=== PATIENT | female | born 1975 | race Caucasian/White ===

== ENCOUNTER 2017-03-29 16:35 | Emergency (ER) | payer MEDICAID ==
[~2017-03-29] VITALS: Ht 160 cm; Wt 90.7 kg
[~2017-03-29 16:35] MED LIST: ALBUTEROL-200 PUFFS/ IH; ALBUTEROL2 PUFFS/17 IN; AMOXIL500 MG PO; AUGMENTIN 875-1 EACH PO; AZITHROMYCIN250 M1 PO; BACTRIM DS 8001 TAB PO; BACTROBAN22; BENZONATATE100 MG PO; CIPRO 500MG TA500 MG PO; FLEXERIL10 MG PO; HYDROCODONE-APA1 TA1 PO; IBUPROFEN800 MG PO; KEFLEX 500MG.500 MG PO; LORTAB 5/500 501 TAB PO; MEDROL 4MG. DOSE4 MG PO; MELOXICAM7.5 MG PO; NICOTINE PATCH;21 MG TD; NOMEDS *; NORCO 325 MG-51 TAB PO; OMEPRAZOLE20 MG PO; PHENERGAN 25MG.25 M1 PO; PHENERGAN25 M1 PO; PRILOSEC20 M1 PO; TESSALON PERLE100 M1 PO; TESSALON PERLE200 MG PO; ULTRAM 50 MG TA50 MG PO; VICODIN 5/500 T1 TAB PO; VOLTAREN50 MG PO; VOLTAREN75 MG PO; WELLBUTRIN XL300 MG PO; XANAX 0.5MG TA0.5 MG PO; ZANTAC 150150 MG PO; ZANTAC 150MG T150 MG PO; ZOFRAN4 MG PO
--- NOTE | 2017-03-29 17:03 | Urgent Treatment Center Report ---
See Addendum History of Present Issue Date/Time Seen by Provider 03/29/17 1702 Visit Reason Pt arrived:Walked Presenting Problem:PT STATES COUGH, SHORTNESS OF AIR, CHEST CONGESTION AND CHEST PRESSURE FOR 2 WEEKS Location if Accident: Onset of symptoms date/time:/ or onset unknown for:MEDICAL HX UNKNOWN Have you (or family members/close friends) recently traveled outside the [place]? N If Yes, where/when: Have you had exposure to infectious disease within the past month? TB? Other? Specify: c/o cough, SOA, wheezing, chest congestion. Poor historian. Isn't sure about any of the history. "thinks" most of these times frames are "about right". Mild symptoms for months now. Got worse 2-3 weeks ago. Was seen at clinic. "She thought I had early stages of COPD". Improved "a little but didn't go away" with zpack, steroid shot, rescue inhaler and something for cough. "Starting to get worse again". Was smoking 1.5ppd but down to 1ppd x weeks. Using albuterol 3-4 times a day. Helps but "symptoms come right back". Hasn't followed up with Dr. Merino due to work schedule yet gets off work at 9am and goes in at 9pm. "too tired" to go during the day. Source patient Exam Limitations no limitations ALLERGIES Coded Allergies: adhesive (I-HIVES 05/16/16) erythromycin base (I-HIVES 05/16/16) Home Medications Active Scripts Benzonatate (Tessalon Perle) 100 MG PO TID #15 SGL Prov: 08/03/16 Ibuprofen (Ibuprofen 800MG) 800 MG PO Q8HP PRN pain #15 TAB Prov: 08/03/16 Albuterol (Albuterol-Hfa Inhaler) 1 PUFF IH QID #1 INH Ref 6 Prov: 05/16/16 Reported Medications BUPROPION HCL (Wellbutrin XL 300MG) 150 MG PO DAILY Omeprazole (Omeprazole 20MG) 20 MG PO DAILY #30 History Medical History General CAD? No Angina: No PA: No Hypertension? No Hyperlipidemia? No CHF? No DVT? No PE? No COPD? No Asthma? Yes Anemia? No GERD? Yes Gastric ulcers? No GI Bleed? No Hernia? No Thyroid Problems? No Hypothyroidism? No CVA? No Seizures? No Diabetes? No Insulin Dependent: No Insulin Pump: No Home FSBS? No Renal Insuffiency? No UTI? No Stones? No BPH? No GB Disease: No Nephritic Syndrome? No Asplenia? No Hepatitis? No Sickle Cell Disease? No Arthritis? No Migraines? No Cataracts? No Glaucoma? No MRSA? No HIV? No TB? No Anxiety? Yes Depression? No Cancer? No More? 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 denies: ear pain, ear discharge, throat swelling. Respiratory see HPI Cardiovascular chest pain (throughout with cough), denies palpitations Gastrointestinal denies no symptoms reported Musculoskeletal denies other (aches) Skin denies rash Psychiatric/Neurological denies headache Physical Exam Vital Signs Vital Signs Date Time Temp Pulse Resp B/P Pulse O2 O2 Flow FiO2 Ox Delivery Rate 03/29 1644 97.7 84 20 119/82 99 General Appearance no apparent distress, obese Eye Exam - bilateral eye normal exam Ear, Nose, Throat normal ENT inspection (x/ mild nasal congestion) Neck non-tender, supple Respiratory Status Yes: trachea midline, chest symmetrical, non tender chest, non productive cough (worse with deep breaths). No: respiratory distress, use of accessory muscles, pain on inspiration, pain on expiration, productive cough. Lung Sounds anterior: lungs clear, decreased breath sounds (irina bases). posterior: lungs clear, decreased breath sounds (irina bases). bilateral: lungs clear, decreased breath sounds (irina bases). Cardiovascular regular rate/rhythm, no peripheral edema, no murmur Neurologic alert, oriented x 3 Skin normal color, warm/dry Lymphatic no adenopathy Medical Decision Making LABS/Meds/Orders Pt receiving controlled substance in ED? No Results/Orders Current Medication Orders Sig/Archie Start time Last Medication Dose Route Stop Time Status Admin Albuterol/Ipratropium 0 .STK-MED ONE 03/29 1740 DC INH Albuterol/Ipratropium 3 ML ONCE ONE 03/29 1730 DC 03/29 INH 03/29 173 1742 Methylprednisolone 125 MG ONCE ONE 03/29 1730 DC 03/29 Sodium Succinate IM 03/29 1731 1730 Methylprednisolone 0 .STK-MED ONE 03/29 1720 DC Sodium Succinate .ROUTE Orders Procedure Date/time Status RT REQUEST DUONEB 03/29 1719 Active CHEST(2 VIEWS-NOT PORTABLE) 03/29 1719 Active XRAY/CT/US XRAY/CT/US XRAY chest XR interpretation by reviewed by me (w/ Dr. olvera ER ) Xray Results negative acute CXR. Compared to most recent CXR. COPD but no acute findings Consult MD Physician Consult Consult/PCP Dr. Olvera ER Time Called 181 Reason Pt. Condition Comments Suggest adding prednisone but also steroid inhaler for daily use. No antibiotics recommended given just completing zpack, negative CXR and no fever. Follow up with primary care STRONGLY recommended Progress [facility] Progress Notes Date 03/29/17 Time 1804 Comment "Feeling better". No longer can be heard coughing. Aware we are waiting for CXR to be reviewed by ER MD. States + understanding. Departure Departure Time of Disposition 1821 Disposition DC Home or Self Care(routine) Clinical Impression Primary Impression: COPD exacerbation Secondary Impressions: Tobacco abuse Condition STABLE Referrals Angelique GIRARD,Antonio Campbell (Family) Call office tomorrow. Tell them you were seen in [facility] 2 weeks ago and now [facility] for same symptoms. We told you to follow up [facility], preferably this week. Return sooner for new or worsening symptoms. 911 for difficulty breathing Patient Instructions DI for Chronic Obstructive Pulmonary Disease, How to Quit Tobacco Products Additional Instructions * STOP smoking * Monitor Temp. Seek treatment if fevers begin * albuterol Inhaler every 4-6 hours as needed like we discussed. Consider this your rescue inhaler. New inhaler daily to try and prevent need for rescue inhaler. Should help open airways and improve cough, wheezing, shortness of breath. * Mucinex during the day for your cough and cough suppressant only at night. Be sure to drink lots of water. Insurance may not cover a prescription of mucinex. Might be cheaper to get 400mg tablets and take 2 tablets morning, midday and evening all with lots of water. * Start steroid tomorrow as you had steroid shot today. Helps with inflammation therefore, cough and wheezing. Follow directions on package. Rvwd side effects. Pt reports they have taken them before. Discharge Counseling Counseled pt/family regarding diagnosis, test results, medications/RX, home care, follow up needs Prescriptions Current Visit Scripts Tiotropium [place] (Spiriva) 1 PUFF IH DAILY #14 PUFFS Prednisone (Prednisone 20MG) 20 MG PO BID #10 TAB at 1830
[2017-03-29] MEDS ORDERED: PREDNISONE 20MG20 MG PO (18:30)
[2017-03-29] MEDS ORDERED: SPIRIVA HA1 PUFF/INH IH (18:30)
[2017-03-29 18:37] VITALS: BP 119/82
--- NOTE | 2017-03-29 20:05 | RADIOLOGY REPORT PS360 ---
CHEST(2 VIEWS-NOT PORTABLE) HISTORY: cough x months, worse x weeks, 1-1.5ppd ORDERING PHYSICIAN: ZAHRA LOUISE APRN PATIENT AGE: 41 years COMPARISON: 08/03/2016 FINDINGS: The cardiomediastinal silhouette and pulmonary vascularity are within normal limits. The lungs are clear without infiltrates, suspicious nodules, or pleural effusions. No acute bony abnormalities. IMPRESSION: Negative chest, no acute finding
== END 2017-03-29 18:39 | disposition home or self-care (01) ==
LOC: UTC 16:35
DX: J44.1 Chronic obstructive pulmonary disease with (acute) exacerbation (principal); Z72.0 Tobacco use; Z79.899 Other long term (current) drug therapy; K21.9 Gastro-esophageal reflux disease without esophagitis; F41.9 Anxiety disorder, unspecified

== ENCOUNTER → 2017-05-11 | Outpatient (CLI) | payer MEDICAID ==
[~2017-05-11] MED LIST changes: +PREDNISONE 20MG20 MG PO; +SPIRIVA HA1 PUFF/INH IH
[2017-05-11 16:32] LABS: LYMPH # 3.4 K/mm3 (0.7-4.5); LYMPH % 25.5 % (10-50.0)
[2017-05-11 16:33] LABS: HEMOGLOBIN 13.1 g/dL (12.2-16.2)
[2017-05-11 18:57] LABS: BUN 11 mg/dL (7-18)
[2017-05-11 19:00] LABS: GFR (ESTIMATED) 80 ML/MIN (59-)
== END ==
LOC: LAB 15:45
PROVIDERS: Nurse Practitioner Family
DX: R53.83 Other fatigue (principal); M10.9 Gout, unspecified; E55.9 Vitamin D deficiency, unspecified; Z79.899 Other long term (current) drug therapy